=== PATIENT | female | born 1950 | race Caucasian/White ===

== ENCOUNTER 2021-10-12 14:17 | Outpatient (REF) | payer MEDICARE, BC, SELFPAY ==
--- NOTE | ~2021-10-12 | CT_ITS ---
EXAMINATION: CT ABDOMEN AND PELVIS WITH CONTRAST CLINICAL INFORMATION: Change in bowel habits COMPARISON: None TECHNIQUE: Multidetector volumetric images were obtained from the superior aspect of the liver through the pubic symphysis following administration 85 mL of Omnipaque 350 intravenous contrast. Sagittal and coronal reformatted images were obtained on the technologist's workstation. Oral contrast: Yes This CT examination was performed using dose optimization techniques as appropriate, variously including the following: *Automated exposure control *Adjustment of mA and/or kV according to patient size (this includes techniques or standardized protocols for targeted exams where dose is matched to indication/reason for exam; i.e. extremities or head) *Use of iterative reconstruction technique DLP: 310 mGy-cm FINDINGS: LUNG BASES: The visualized lung bases are unremarkable. LIVER, GALLBLADDER, AND BILIARY TREE: The liver is normal in size, shape, and attenuation. No focal hepatic lesion or biliary ductal dilatation is present. The gallbladder has been removed. PANCREAS: Unremarkable. SPLEEN: Unremarkable. ADRENAL GLANDS: Unremarkable. KIDNEYS AND URETERS: The kidneys are normal in size, shape, and attenuation. No hydronephrosis, hydroureter, or calculi seen. No perinephric stranding. BLADDER: Unremarkable. GASTROINTESTINAL TRACT: There is diverticulosis of the colon. No evidence of diverticulitis is seen. The small and large bowel are otherwise unremarkable. The appendix is unremarkable. The stomach is unremarkable. ABDOMINAL WALL: No significant hernia is appreciated. LYMPH NODES: Normal. VASCULAR: Unremarkable. PELVIC VISCERA: Unremarkable. OSSEOUS STRUCTURES: There are degenerative changes of the spine. CT/CT abdomen pelvis w con IMPRESSION: Diverticulosis of the colon. No evidence of diverticulitis. Fleischner guidelines were followed.
[2021-10-12] MEDS: iohexoL 350 MG/ML 100 ML INFUS..BTL IV (17:05)
== END 2021-10-12 14:18 | disposition home or self-care (01) ==
LOC: HO.CT 14:17
PROVIDERS: Visit Provider Physician Assistant
DX: R19.4 Change in bowel habit (principal)
CPT/HCPCS: 74177; Q9967

== ENCOUNTER 2023-10-27 09:21 | Outpatient (AMB) | payer MEDICARE, BC, SELFPAY ==
--- NOTE | 2023-10-27 09:22 | MHC.OFFVIS ---
Intake Vital Signs 10/27/23 09:23 Weight 138 lb 0.15 oz BP 135/64 Blood Pressure Location Lt brachial Position Sitting Pulse 88 Intake Visit Reasons: Diarrhea Intake Note: Patient referred by PCP Jeanna Rodriguez [employer] @ [facility]. Patient c/o: Diarrhea since February 1996. Diarrhea started after gallbladder removal. Reports diarrhea after eating rich foods during the day. Takes loperamide 2mg which helps. Patient not sure if okay to take daily. Takes colon support probiotic every morning. C/o gas after each meal and takes Gas relief after each meal. Director Social Welfare Required: No Accompanied by: Self / Same As Patient Allergies amoxicillin Allergy (Verified 10/27/23 09:34) Rash Medication List - Last Reconciled 10/27/23 by DEVON Fuentes-Antonio conjugated estrogens (Premarin) 0.625 mg vaginal DAILY L. gasseri-B. bifidum-B longum 1.5 billion cell (Probiotic Colon Support) caps PO levothyroxine 50 mcg PO DAILY lisinopril 5 mg PO DAILY loperamide (Anti-Diarrheal (loperamide)) 2 mg PO Q6H PRN nystatin-triamcinolone 100,000-0.1 unit/g-% 1 appl topical DAILY raloxifene 60 mg PO DAILY simethicone (Gas Relief (simethicone)) 125 mg PO BID-QID PRN triamcinolone acetonide 0.025% 1 appl topical DAILY venlafaxine ER 150 mg PO DAILY verapamil ER 360 mg PO DAILY HPI HPI Comments History of Present Illness Details A 73 y/o female - dana 1995- she seems bowel have been inconsistent-on and off for all these years- Loose bowels in a.m-wearing sanitary pad everyday since 1995-gassy- oatnut bread seemed to be a culprit She takes 1 anti diarrheal pills-that works - she has 1 formed stool a day. She ate at restaurant-last night - now had 3 stools this a.m. Her symptoms seem to be inconsistent Last [facility]- a couple years ago- She saw another GI in [facility] a year or so ago- she had a lot of testing- she cannot recall what they were. However she did have a normal colonoscopy per her report She has no nausea, vomiting, hematemesis, hematochezia fever chills PFSH Surgical History (Updated 10/27/23 @ 10:05 by Lexi Quigley PA-C) H/O colonoscopy Hx of cholecystectomy Family History (Updated 10/27/23 @ 10:06 by Lexi Quigley PA-C) Unknown No family history of colorectal cancer Social History (Updated 10/27/23 @ 10:07 by Lexi Quigley PA-C) Household Members Other:: Patient Tobacco Use Status: Never used Tobacco Current occupational status: retired Review of Systems Const All systems reviewed & are unremarkable except as noted in HPI and below Card Denies chest pain and Denies dyspnea Resp Denies dyspnea GI Denies abdominal pain, Reports bloating, Denies hematochezia, Reports diarrhea, Denies nausea and Denies vomiting Psych Reports anxiety Physical Exam Vital Signs: Last Vital Signs Pulse 88 10/27/23 09:23 BP 135/64 10/27/23 09:23 Const General: cooperative, healthy appearing, comfortable and anxious Orientation/consciousness: patient oriented x3 Limitations: no limitations Eyes Sclerae: sclerae normal Resp Effort & Inspection: normal respiratory effort and able to speak in complete sentences Auscultation: clear to auscultation bilaterally, no crackles, no rales and no rhonchi Cardio Rate: regular rate Rhythm: regular rhythm Heart sounds: S1 normal heart sound present and S2 normal heart sound present GI Palpation (GI): Soft to palpation and nontender Auscultation: normal bowel sounds Skin General skin exam: no rashes or lesions noted Neuro General: patient oriented x3 Extrem General: Yes full ROM Psych Appearance: grossly normal and well kempt Mental Status: mental status grossly normal Speech and movement: Normal speech and movement present Affect: Anxious affect present Attitude: cooperative Thought process: Normal thought process present Thought content: Normal thought content present Insight: Good insight present (Psych) Judgement: Good judgement present (Psych) Results Reviewed Results Reviewed: CT/CT abdomen pelvis w con IMPRESSION: Diverticulosis of the colon. No evidence of diverticulitis. Assessment & Plan Assessment & Plan (1) Chronic diarrhea: Comment: Symptoms somewhat inconsistent- Extremely frustrated/ anxious- may have functional component- however interrupts ADL Hesitant to change/ add- reassurrance Code(s): K52.9 - Noninfective gastroenteritis and colitis, unspecified Plan: Further eval Attempt to get colonoscopy report question if biopsies were obtained at that time (2) Bloating: Comment: Reviewed dietary modifications, low FODMAP Code(s): R14.0 - Abdominal distension (gaseous) Plan: Stool studies offered suggestions labs fodmap Fall negative, no change in symptoms consider 2 wk rifaxamin Plan need colon report from [facility]- scanned into chart Labs Stool studies- call after submitted Welchol Orders: Orders GI Panel 10/27/23 R19.7 - Diarrhea, unspecified Transglutaminase IgA 10/27/23 R19.7 - Diarrhea, unspecified Vitamin B12 and Folate 10/27/23 K21.9 - Gastro-esophageal reflux disease without esophagitis, K52.9 - Noninfective gastroenteritis and colitis, unspecified, R14.0 - Abdominal distension (gaseous) Complete Blood Count Auto Diff 10/27/23 K52.9 - Noninfective gastroenteritis and colitis, unspecified Comprehensive Met. Panel 10/27/23 K52.9 - Noninfective gastroenteritis and colitis, unspecified C Reactive Protein 10/27/23 K52.9 - Noninfective gastroenteritis and colitis, unspecified Calprotectin, Fecal 10/27/23 R19.7 - Diarrhea, unspecified Endomysial IgA rflx Titer 10/27/23 K52.9 - Noninfective gastroenteritis and colitis, unspecified Erythrocyte Sedimentation Rate 10/27/23 R19.7 - Diarrhea, unspecified CDiff Gene PCR 10/27/23 R19.7 - Diarrhea, unspecified Thyroid Stimulating Hormone 10/27/23 R19.8 - Other specified symptoms and signs involving the digestive system and abdomen Medications: New colesevelam (WelChol) 1,250 mg (2 x 625 mg) PO BID 60 tabs 1RF Patient Instructions: Very pleasant, somewhat anxious 73-year-old female presents with diarrhea. However her symptoms seem to be inconsistent, may likely have functional component labs Stool Welchol- Encouraged to call with any questions or concerns. Reassurance offered Coding Level of Care Code New Pt Level 4 (79839) Diagnoses Chronic diarrhea K52.9 Bloating R14.0 Time Spent (min) 50 Comment Third opinion
[2023-10-27 09:23] VITALS: BP 135/64; PULSE 88
== END 2023-10-27 10:34 | disposition home or self-care (01) ==
PROVIDERS: Visit Provider Physician Assistant
DX: K52.9 Noninfective gastroenteritis and colitis, unspecified (principal); R14.0 Abdominal distension (gaseous)
CPT/HCPCS: 99204

== ENCOUNTER 2023-10-27 09:21 | Outpatient (REF) | payer MEDICARE, BC, SELFPAY ==
[2023-10-27 11:07] LABS: MANUAL DIFF FLAG NO
[2023-10-27 11:59] LABS: Basophils Percent Auto 0.5 % (0-2); Hematocrit 39.1 % (37.0-47.0); Hemoglobin 13.4 g/dl (12.0-16.0); Imm Gran Abs Auto 0.05 X10*3/uL (0.00-0.03); Imm Gran Pct Auto 0.6 % (0.0-0.4); Lymphocytes Absolute Auto 2.4 X10*3/uL (1.2-4.9); Mean Corpuscular HGB Conc 34.3 g/dl (31.0-35.0); Mean Corpuscular Hemoglobin 31.8 pg (27.0-33.0); Mean Corpuscular Volume 92.7 fL (80.0-98.0); Mean Platelet Volume 10.9 fL (9.4-12.3); Monocytes Absolute Auto 0.5 X10*3/uL (0.1-1.2); Monocytes Percent Auto 6.5 % (2-11); Neutrophils Absolute Auto 5.2 x10*3/uL (2.0-8.3); Neutrophils Percent Auto 63.4 % (45-73); Platelet Count 294 X10*3/uL (160-400); Red Blood Count 4.22 X10*6/uL (4.20-5.50); Red Cell Distribution Width 12.6 % (11.0-16.0); White Blood Count 8.2 X10*3/uL (4.8-10.8)
[2023-10-27 12:42] LABS: Alanine Aminotransferase 26 U/L (0-31); Albumin Level 4.1 g/dL (3.5-5.0); Alkaline Phosphatase 52 U/L (39-117); Anion Gap 9 (12-20); Aspartate Amino Transferase 24 U/L (5-31); Bilirubin Total 0.3 mg/dL (0.0-1.0); Blood Urea Nitrogen 17 mg/dL (9-16); C Reactive Protein 0.26 mg/dL (< or = 0.50); Carbon Dioxide 26 mmol/L (22-29); Chloride 109 mmol/L (96-108); Estimated Glomerular Filt Rate > 60; Glucose Random 107 mg/dL (60-115); Potassium 4.3 mmol/L (3.3-5.1); Sodium 140 mmol/L (135-145); Thyroid Stimulating Hormone 1.68 uIU/mL (0.32-4.0); Total Protein 6.9 g/dL (6.5-8.0)
[2023-10-27 12:53] LABS: Erythrocyte Sedimentation Rate 7 MM/HR (0-20)
[2023-10-27 12:55] LABS: Folate 11.1 ng/mL (> or = 4.0); Vitamin B12 294 pg/mL (200-900)
[2023-10-28 19:14] LABS: Transglutaminase IgA <1.0 U/mL
[2023-11-01 13:33] LABS: Endomysial IgA Antibody Negative (Negative)
== END 2023-10-27 09:22 | disposition home or self-care (01) ==
LOC: HO.LAB 09:21
PROVIDERS: PCP Family Medicine; Visit Provider Physician Assistant
DX: K52.9 Noninfective gastroenteritis and colitis, unspecified (principal); R19.8 Other specified symptoms and signs involving the digestive system and abdomen; K21.9 Gastro-esophageal reflux disease without esophagitis; R14.0 Abdominal distension (gaseous)
CPT/HCPCS: 36415; 80053; 82607; 82746; 84443; 85025; 85652; 86140; 86231; 86364; 99202

== ENCOUNTER 2023-11-01 11:00 | Outpatient (REF) | payer MEDICARE, BC, SELFPAY ==
[2023-11-01 13:07] LABS: Adenovirus F 40/41 Not Detected (Not Detect.); Astrovirus Not Detected (Not Detect.); Campylobacter Not Detected (Not Detect.); Cryptosporidium Not Detected (Not Detect.); Cyclospora cayetanensis Not Detected (Not Detect.); E. coli EAEC Not Detected (Not Detect.); E. coli EPEC Not Detected (Not Detect.); E. coli ETEC Not Detected (Not Detect.); E. coli STEC Not Detected (Not Detect.); Entamoeba histolytica Not Detected (Not Detect.); Giardia lamblia Not Detected (Not Detect.); Norovirus GI/GII Not Detected (Not Detect.); Plesiomonas shigelloides Not Detected (Not Detect.); Rotavirus A Not Detected (Not Detect.); Salmonella Not Detected (Not Detect.); Sapovirus Not Detected (Not Detect.); Shigella sp./EIEC Not Detected (Not Detect.); Vibrio Not Detected (Not Detect.); Vibrio Cholerae Not Detected (Not Detect.); Yersinia enterocolitica Not Detected (Not Detect.)
[2023-11-01 13:48] LABS: CDiff Gene PCR NEGATIVE (Negative)
[2023-11-06 20:19] LABS: Calprotectin, Fecal 7 mcg/g
== END 2023-11-01 11:01 | disposition home or self-care (01) ==
LOC: HO.LNP 11:00
PROVIDERS: Visit Provider Physician Assistant
DX: R19.7 Diarrhea, unspecified (principal)
CPT/HCPCS: 83993; 87493; 87507